=== PATIENT | male | born 1985 | race Caucasian/White ===

== ENCOUNTER → 2024-06-13 07:57 | Outpatient (CLI) | payer OTHER, SELFPAY | LOC: RESP 07:59 | PROVIDERS: PCP Student in an Organized Health Care Education/Training Program; Referring Provider Student in an Organized Health Care Education/Training Program; Visit Provider Student in an Organized Health Care Education/Training Program | DX: R06.2 Wheezing (principal); R05.9 Cough, unspecified | CPT/HCPCS: 94060; 94726; 94729 ==